=== PATIENT | female | born 1965 | race Caucasian/White ===

== ENCOUNTER 2019-07-08 08:34 | Emergency (ER) | payer OTHER ==
[~2019-07-08] VITALS: Ht 170.2 cm; Wt 86.2 kg
[~2019-07-08 08:34] MED LIST: ASPI325 PO; ATOR10 PO; ATOR80 PO; CLOP75 PO; Cleocin HCl150 MG PO; Cortisporin Ear10 ML LEFTEAR; GABA600 PO; HYDCHL25 PO; ISOMON30 PO; Imdur30 MG PO; LEVSOD75 PO; Lopressor 25 mg25 MG PO; METO25ER PO; METO50 PO; NITR.4SL SL; Neurontin 300300 MG PO; Nitrostat0.4 MG SL; PRED10 PO; Prozac20 MG PO; Synthroid75 MCG PO; TRAZ150T57 PO; Trazodone HCl300 MG PO
[2019-07-08] MEDS ORDERED: SINEMET 25-1001 EACH PO (08:53)
[2019-07-08] MEDS ORDERED: Carbidopa-Levo1 EACH PO (08:54)
== END 2019-07-08 09:10 | disposition home or self-care (01) ==
LOC: ER 08:34
DX: Z00.00 Encounter for general adult medical examination without abnormal findings (principal); I10 Essential (primary) hypertension; E03.9 Hypothyroidism, unspecified; I25.10 Atherosclerotic heart disease of native coronary artery without angina pectoris; F17.210 Nicotine dependence, cigarettes, uncomplicated; Z88.0 Allergy status to penicillin; Z79.82 Long term (current) use of aspirin; Z79.899 Other long term (current) drug therapy
CPT/HCPCS: 99281

== ENCOUNTER 2021-05-26 11:26 | Emergency (ER) | payer OTHER ==
[~2021-05-26] VITALS: Ht 170.2 cm; Wt 86.2 kg
[~2021-05-26 11:26] MED LIST changes: +Carbidopa-Levo1 EACH PO; +SINEMET 25-1001 EACH PO
== END 2021-05-26 13:29 | disposition home or self-care (01) ==
LOC: ER 11:26
DX: R07.9 Chest pain, unspecified (principal); I10 Essential (primary) hypertension; E78.5 Hyperlipidemia, unspecified; E03.9 Hypothyroidism, unspecified; F17.210 Nicotine dependence, cigarettes, uncomplicated; Z88.0 Allergy status to penicillin; Z79.899 Other long term (current) drug therapy; Z79.82 Long term (current) use of aspirin
CPT/HCPCS: 71046; 93005; 93010; 99285-25

== ENCOUNTER → 2022-02-24 | Outpatient (CLI) | payer OTHER | END | disposition home or self-care (01) | LOC: LAB SHORT 17:39 → LAB 17:39 | DX: E03.9 Hypothyroidism, unspecified (principal) | CPT/HCPCS: 84443 ==

== ENCOUNTER 2023-08-22 10:02 | Emergency (ER) | payer OTHER ==
[~2023-08-22] VITALS: Ht 167.6 cm; Wt 90.7 kg
[2023-08-22 10:26] VITALS: BP 138/96
== END 2023-08-22 11:50 | disposition home or self-care (01) ==
LOC: ER 10:02
DX: S05.01XA Injury of conjunctiva and corneal abrasion without foreign body, right eye, initial encounter (principal); I10 Essential (primary) hypertension; E78.5 Hyperlipidemia, unspecified; E03.9 Hypothyroidism, unspecified; F17.210 Nicotine dependence, cigarettes, uncomplicated; Z79.82 Long term (current) use of aspirin; Z79.899 Other long term (current) drug therapy; Z88.0 Allergy status to penicillin

== ENCOUNTER 2024-02-22 10:35 | Emergency (ER) | payer OTHER ==
[~2024-02-22] VITALS: Ht 170.2 cm; Wt 104.3 kg
[~2024-02-22 10:35] MED LIST changes: +ERYT1OIN RIGHTEYE
[2024-02-22 11:04] LABS: BASOPHILS ABSOLUTE AUTO 0.06 K/mm3 (0.00-0.23); BASOPHILS PERCENT AUTO 1 % (0-2); EOSINOPHILS ABSOLUTE AUTO 0.15 K/mm3 (0.00-0.68); EOSINOPHILS PERCENT AUTO 1 % (0-6); Hematocrit 43.5 % (33.0-51.0); Hemoglobin 15.4 g/dL (11.5-16.0); IMMATURE GRAN ABSOLUTE AUTO 0.04 K/mm3 (0.00-0.10); IMMATURE GRAN PERCENT AUTO 0 % (0-1); LYMPHOCYTES PERCENT AUTO 25 % (21-46); MONOCYTES ABSOLUTE AUTO 0.65 K/mm3 (0.16-1.47); MONOCYTES PERCENT AUTO 6 % (4-13); Mean Corpuscular HGB Conc 35.4 g/dL (31.5-36.5); Mean Corpuscular Volume 90 fL (80-100); Mean Platelet Volume 9.2 fL (9.1-12.4); NEUTROPHILS PERCENT AUTO 66 % (41-73); Platelet Count 271 K/mm3 (150-400); RDW Coefficient Variation 12.1 % (11.7-14.2); RDW Standard Deviation 40.2 fL (35.1-46.3); Red Blood Cell Count 4.82 M/mm3 (3.80-5.20)
[2024-02-22 11:29] LABS: Albumin, Blood 3.4 g/dL (3.4-5.0); Bilirubin, Total 0.5 mg/dL (0.1-1.0); Bun/Creatinine Ratio 15.4 (12.0-20.0); Calcium, Blood 8.6 mg/dL (8.5-10.1); Creatinine, Blood 0.78 mg/dL (0.40-1.00); Globulin, Blood 3.5 g/dL (2.2-4.0); Potassium, Blood 3.7 mmol/L (3.5-5.5); Total Protein, Blood 6.9 g/dL (6.4-8.2)
[2024-02-22] MEDS ORDERED: Albuterol 2.5 MG/3 ML VIAL INH SCH (11:30)
[2024-02-22] MEDS ORDERED: Ipratropium Bromide INH 0.02% 0.5 mg/2.5ML Vial INH SCH (11:30)
[2024-02-22 11:47] VITALS: BP 121/82
== END 2024-02-22 13:36 | disposition left against medical advice (07) ==
LOC: ER 10:35
PROVIDERS: Student in an Organized Health Care Education/Training Program
DX: R07.9 Chest pain, unspecified (principal); Z88.0 Allergy status to penicillin; Z79.899 Other long term (current) drug therapy; Z79.82 Long term (current) use of aspirin; I10 Essential (primary) hypertension; E03.9 Hypothyroidism, unspecified; E78.5 Hyperlipidemia, unspecified; F17.210 Nicotine dependence, cigarettes, uncomplicated
CPT/HCPCS: 71046; 80053; 83880; 84484; 85025; 85379; 93005; 93010; 94644; 94664; 99285-25

== ENCOUNTER 2024-04-12 09:43 | Emergency (ER) | payer OTHER ==
[~2024-04-12] VITALS: Ht 170.2 cm; Wt 90.7 kg
[2024-04-12 10:01] VITALS: BP 170/95
[2024-04-12] MEDS ORDERED: Methadone HCL 10 MG TAB PO ONE (10:10)
== END 2024-04-12 10:47 | disposition home or self-care (01) ==
LOC: ER 09:43
DX: Z76.89 Persons encountering health services in other specified circumstances (principal); F11.21 Opioid dependence, in remission; I10 Essential (primary) hypertension; E07.9 Disorder of thyroid, unspecified; E78.00 Pure hypercholesterolemia, unspecified; F17.210 Nicotine dependence, cigarettes, uncomplicated; Z95.5 Presence of coronary angioplasty implant and graft; Z79.01 Long term (current) use of anticoagulants; Z79.82 Long term (current) use of aspirin; Z79.890 Hormone replacement therapy; Z79.899 Other long term (current) drug therapy
CPT/HCPCS: 99281; A9270